=== PATIENT | male | born 1960 | race Caucasian/White ===

== ENCOUNTER 2018-10-14 13:11 | Emergency (ER) | payer OTHER ==
[2018-10-14] MEDS ORDERED: Sodium Chloride 0.9% 1000 ML 1,000 ML IV STA (13:54)
[2018-10-14] MEDS ORDERED: SODIUM CHLORIDE 0.9% IV ONE (13:56)
[2018-10-14] MEDS ORDERED: THORAZINE IV ONE (13:56)
[2018-10-14 14:10] LABS: BASOPHIL % 0.2 % (0.0-0.4); Basophil (Absolute #) 0.02 (0-0.4); Eosinophil % 0.9 % (0.00-5.0); Eosinophil (Absolute #) 0.11 (0-0.5); Granulocyte Absolute (ANC) 9.16 (1.4-6.9); Granulocytes % 73.7 % (36.0-66.0); Hematocrit 31.3 % (42-50); Hemoglobin 10.1 gm/dl (12.5-18.0); Lymphocyte (Absolute #) 1.84 (1.0-4.6); Lymphocytes % 14.8 % (24.0-44.0); Mean Cell Volume 86.2 fl (78-100); Mean Corpuscular Hemoglobin 27.8 pg (26-32); Mean Corpuscular Hgb Concent. 32.3 g/dl (32-36); Mean Platelet Volume 9.1 fl (6-9.5); Monocyte (Absolute #) 1.29 (0.0-1.3); Monocytes % 10.4 % (0.0-12.0); Platelet Count 500 K/mm3 (150-450); Red Blood Count 3.63 M/mm3 (4.1-5.6); Red Cell Distribution Width 14.4 % (11.5-14.0); White Blood Count 12.4 K/mm3 (4.0-10.5)
[2018-10-14] MEDS ORDERED: Sodium Chloride 0.9% 1000 ML 1,000 ML ONE (14:23)
[2018-10-14 14:26] LABS: ALBUMIN 3.4 g/dL (3.5-5.0); ANION GAP 12.2 MEQ/L (5-15); BILIRUBIN,TOTAL 0.4 mg/dL (0.2-1.3); Calcium 8.3 mg/dL (8.4-10.2); Creatinine 1 1.3 mg/dL (0.66-1.25); Potassium 3.3 mmol/L (3.5-5.1); Total Protein 6.2 g/dL (6.3-8.2)
[2018-10-14 14:44] LABS: Appearance CLOUDY (CLEAR); Bacteria FEW /HPF (NEGATIVE); Bilirubin NEGATIVE (NEGATIVE); Blood SMALL Ery/ul (0-5); Epithelial Cells RARE /HPF (FEW); Glucose 50 mg/dL (NEGATIVE); Ketones TRACE (NEGATIVE); Leukocyte Esterase MODERATE (NEGATIVE); Mucus SLIGHT /HPF (NEGATIVE); Nitrite POSITIVE (NEGATIVE); Non-Squamous Epithelial Cells RARE /HPF (FEW); Protein,Urine Dip 100 (Negative); Specific Gravity 1.013 (1.005-1.025); Urobilinogen NEGATIVE mg/dL (0-1); WBC 26-50 /HPF (0-5)
[2018-10-14 15:14] LABS: BAND 1 % (0.0-2.0); Lymphocytes 11 % (24-44); Monocyte 4 % (0.0-12.0); Neutrophils 84 % (36.-66.); Total Cells Counted 100
[2018-10-14 15:16] LABS: Platelet Estimate INCREASED (NORMAL)
--- NOTE | 2018-10-14 15:37 | ERPHSYRPT ---
- History of Present Illness Time Seen by Provider: 10/14/18 13:45 Source: patient, family Exam Limitations: no limitations Patient Subjective Stated Complaint: pt reports nausea and persistent hiccuping since a surgery 10/04/18. pt had reconstruction of left ureter and hernia repair at [facility]. pt has hx of bladder CA 9 years ago with gianni pouch. pt states he has not taken in any solid food for 10 days. reports vomiting that ceased 3 days ago. reports liquid stools but did have some form to it starting today. Triage Nursing Assessment: pt is aox3, pupils perrl, afebrile, resps easy and non labored, radial pulses strong and equal, abd appears distended, tenderness to the incisional area, bowel sounds present and hyperactive x 4, vertical incision noted to the abdomen with bashir present, no redness or drainage noted , skin is well approximated, barroso cath is place, clear yellow urine present in leg bag, surgical drain present to abdomen as well with a small amount of blood noted in the collection device, intermittent hiccuping noted upon exam, pt skin pale warm dry. cap refill < 3 seconds. Physician History: 58 y/o white male s/p total left ureterectomy with left ureter creation with bowel anastomosis and ventral hernia repair. was dx with bladder cancer several years ago. the left ureter was no longer functioning. [place]. pt states he has had intractable hiccups since surgery. not improving. pt is taking in liquids fine but unable to take in solids. pt with nausea but no vomiting. he does not have pain. he has had several bowel movements and most recent ones solid. his only new medication is keflex. pt has not been taking his oxycodone. his primary concern, and the one that brought him into ED, is the hiccups. Timing/Duration: day(s) (10 days) Severity: mild Associated Symptoms: nausea, other (hiccups), No vomiting Allergies/Adverse Reactions: No Known Drug Allergies Allergy (Verified 10/14/18 13:51) Home Medications: Acetaminophen 500 mg [Tylenol Extra Strength 500 mg] 1,000 mg PO Q6H 10/14 [History] Azelaic Acid [Finacea] 50 gm TP DAILY 10/14/18 [History] Cephalexin Mh 250 mg [Keflex 250 mg] 250 mg PO DAILY 10/14/18 [History] Docusate Sodium 100 mg [Colace 100 MG] 100 mg PO BID 10/14/18 [History] Enoxaparin Sodium 40 mg SQ DAILY 10/14/18 [History] Lansoprazole 15 mg PO DAILY 10/14/18 [History] Hx Tetanus, Diphtheria Vaccination/Date Given: Yes Hx Influenza Vaccination/Date Given: Yes Hx Pneumococcal Vaccination/Date Given: No Immunizations Up to Date: Yes - Review of Systems Constitutional: No Symptoms, No Fever Eyes: No Symptoms Ears, Nose, & Throat: No Symptoms Respiratory: Other (hiccups) Cardiac: No Symptoms Abdominal/Gastrointestinal: Nausea, No Abdominal Pain, No Vomiting Genitourinary Symptoms: No Symptoms Musculoskeletal: No Symptoms Skin: No Symptoms Neurological: No Symptoms Psychological: No Symptoms Endocrine: No Symptoms Hematologic/Lymphatic: No Symptoms Immunological/Allergic: No Symptoms All Other Systems: Reviewed and Negative - Past Medical History Pertinent Past Medical History: Yes Neurological History: No Pertinent History ENT History: No Pertinent History Cardiac History: No Pertinent History Respiratory History: No Pertinent History Endocrine Medical History: No Pertinent History Musculoskeletal History: No Pertinent History GI Medical History: GERD History: Bladder Cancer Psycho-Social History: No Pertinent History Male Reproductive Disorders: No Pertinent History Other Medical History: hx of bladder cancer has an [place] pouch, rosecia - Past Surgical History Past Surgical History: Yes Neuro Surgical History: No Pertinent History Cardiac: No Pertinent History Respiratory: No Pertinent History Gastrointestinal: No Pertinent History Genitourinary: Other Musculoskeletal: No Pertinent History Male Surgical History: Prostate Surgery Other Surgical History: bladder removed, prostated removed with lymph nodes,. stoma for caths. surgery to reconstruct ureter and hernia repair - Social History Smoking Status: Never smoker Exposure to second hand smoke: No Drug Use: none Patient Lives Alone: No - Nursing Vital Signs Nursing Vital Signs: Initial Vital Signs Temperature 97.8 F 10/14/18 13:27 Pulse Rate 89 10/14/18 13:27 Respiratory Rate 20 10/14/18 13:27 Blood Pressure 129/78 10/14/18 13:27 O2 Sat by Pulse Oximetry 98 10/14/18 13:27 Pain Scale Pain Intensity 2 - Physical Exam General Appearance: mild distress, alert, anxiety Eye Exam: PERRL/EOMI Ears, Nose, Throat Exam: normal ENT inspection, moist mucous membranes Neck Exam: normal inspection, non-tender, supple, full range of motion Respiratory Exam: normal breath sounds, lungs clear, No chest tenderness, No respiratory distress Cardiovascular Exam: regular rate/rhythm, normal heart sounds, normal peripheral pulses Gastrointestinal/Abdomen Exam: soft, normal bowel sounds, other (postop surgical sites without infection), No tenderness, No guarding, No rebound Rectal Exam: not done Back Exam: normal inspection, normal range of motion, No CVA tenderness, No vertebral tenderness Extremity Exam: normal inspection, normal range of motion, pelvis stable Neurologic Exam: alert, oriented x 3, cooperative, 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 as tested, normal mood/affect Skin Exam: normal color, warm, dry Lymphatic Exam: No adenopathy SpO2 Interpretation: normal SpO2: 99 O2 Delivery: Room Air - Course Nursing assessment & vital signs reviewed: Yes Ordered Tests: Active Orders 24 hr Category Date Time Status IV Insertion STAT Care 10/14/18 13:54 Active ABDOMEN AND PELVIS W/0 CONTRAS [CT] Stat Exams 10/14/18 16:07 Completed AMYLASE Stat Lab 10/14/18 14:00 Completed CBC W DIFF Stat Lab 10/14/18 14:00 Completed CMP Stat Lab 10/14/18 14:00 Completed CULTURE,URINE Stat Lab 10/14/18 14:29 Received LIPASE Stat Lab 10/14/18 14:00 Completed Lactic Acid Stat Lab 10/14/18 14:20 Completed Manual Differential NC Stat Lab 10/14/18 14:00 Completed UA W/RFX UR CULTURE Stat Lab 10/14/18 14:29 Completed Medication Summary Discontinued Medications Generic Name Dose Route Start Last Admin Trade Name Freq PRN Reason Stop Dose Admin Chlorpromazine HCl 25 mg/ 101 mls @ 200 mls/hr 10/14/18 13:56 10/14/18 14:46 Sodium Chloride IV 10/14/18 14:26 200 mls/hr STAT ONE Administration Sodium Chloride 1,000 mls @ 999 mls/hr 10/14/18 13:54 10/14/18 15:42 Sodium Chloride 0.9% 1000 Ml IV 10/14/18 14:54 Infused .Q1H1M STA Infusion Sodium Chloride Confirm 10/14/18 14:23 Sodium Chloride 0.9% 1000 Ml Administered 10/14/18 14:24 Dose 1,000 mls @ ud .ROUTE .STK-MED ONE Trimethoprim/Sulfamethoxazole 1 tab 10/14/18 15:43 10/14/18 15:48 Bactrim Ds Tablet PO 10/14/18 15:44 1 tab STAT STA Administration Trimethoprim/Sulfamethoxazole Confirm 10/14/18 15:46 Bactrim Ds Tablet Administered 10/14/18 15:47 Dose 1 tab PO .STK-MED ONE Lab/Rad Data: Laboratory Result Diagrams 10/14/18 14:00 10/14/18 14:00 Laboratory Results 10/14/18 10/14/18 10/14/18 Range/Units 14:29 14:20 14:00 WBC (4.0-10.5) K/mm3 RBC (4.1-5.6) M/mm3 Hgb (12.5-18.0) gm/dl Hct (42-50) % MCV (78-100) fl MCH (26-32) pg MCHC (32-36) g/dl RDW (11.5-14.0) % Plt Count (150-450) K/mm3 MPV (6-9.5) fl Gran % (36.0-66.0) % Eos # (Auto) (0-0.5) Absolute Lymphs (auto) (1.0-4.6) Absolute Monos (auto) (0.0-1.3) Lymphocytes % (24.0-44.0) % Monocytes % (0.0-12.0) % Eosinophils % (0.00-5.0) % Basophils % (0.0-0.4) % Absolute Granulocytes (1.4-6.9) Segmented Neutrophils (36.-66.) % Band Neutrophils (0.0-2.0) % Lymphocytes (Manual) (24-44) % Monocytes (Manual) (0.0-12.0) % Basophils # (0-0.4) Platelet Estimate (NORMAL) RBC Morphology Sodium 133 L (137-145) mmol/L Potassium 3.3 L (3.5-5.1) mmol/L Chloride 99 (98-107) mmol/L Carbon Dioxide 24 (22-30) mmol/L Anion Gap 12.2 (5-15) MEQ/L BUN 29 H (9-20) mg/dL Creatinine 1.30 H (0.66-1.25) mg/dL Estimated GFR 59.8 ML/MIN Glucose 144 H (74-106) mg/dL Lactic Acid 1.4 (0.4-2.0) Calcium 8.3 L (8.4-10.2) mg/dL Total Bilirubin 0.40 (0.2-1.3) mg/dL AST 17 (17-59) U/L ALT 33 (0-50) U/L Alkaline Phosphatase 71 (38-126) U/L Serum Total Protein 6.2 L (6.3-8.2) g/dL Albumin 3.4 L (3.5-5.0) g/dL Amylase 129 H (30-110) U/L Lipase 546 H (23-300) U/L Urine Color YELLOW (YELLOW) Urine Appearance CLOUDY (CLEAR) Urine pH 6.0 (5-6) Ur Specific [place] 1.013 (1.005-1.025) Urine Protein 100 (Negative) Urine Ketones TRACE (NEGATIVE) Urine Blood SMALL (0-5) Merlin/ul Urine Nitrite POSITIVE (NEGATIVE) Urine Bilirubin NEGATIVE (NEGATIVE) Urine Urobilinogen NEGATIVE (0-1) mg/dL Ur Leukocyte Esterase MODERATE (NEGATIVE) Urine WBC (Auto) 26-50 (0-5) /HPF Urine RBC (Auto) 3-5 (0-2) /HPF U Epithel Cells (Auto) RARE (FEW) /HPF Urine Bacteria (Auto) FEW (NEGATIVE) /HPF U Non-Squamous Epi Cells RARE (FEW) /HPF Urine Mucus (Auto) SLIGHT (NEGATIVE) /HPF Urine Culture Reflexed YES (NO) Urine Glucose 50 (NEGATIVE) mg/dL 10/14/18 Range/Units 14:00 WBC 12.4 H (4.0-10.5) K/mm3 RBC 3.63 L (4.1-5.6) M/mm3 Hgb 10.1 L (12.5-18.0) gm/dl Hct 31.3 L (42-50) % MCV 86.2 (78-100) fl MCH 27.8 (26-32) pg MCHC 32.3 (32-36) g/dl RDW 14.4 H (11.5-14.0) % Plt Count 500 H (150-450) K/mm3 MPV 9.1 (6-9.5) fl Gran % 73.7 H (36.0-66.0) % Eos # (Auto) 0.11 (0-0.5) Absolute Lymphs (auto) 1.84 (1.0-4.6) Absolute Monos (auto) 1.29 (0.0-1.3) Lymphocytes % 14.8 L (24.0-44.0) % Monocytes % 10.4 (0.0-12.0) % Eosinophils % 0.9 (0.00-5.0) % Basophils % 0.2 (0.0-0.4) % Absolute Granulocytes 9.16 H (1.4-6.9) Segmented Neutrophils 84 H (36.-66.) % Band Neutrophils 1 (0.0-2.0) % Lymphocytes (Manual) 11 L (24-44) % Monocytes (Manual) 4 (0.0-12.0) % Basophils # 0.02 (0-0.4) Platelet Estimate INCREASED (NORMAL) RBC Morphology NORMAL Sodium (137-145) mmol/L Potassium (3.5-5.1) mmol/L Chloride (98-107) mmol/L Carbon Dioxide (22-30) mmol/L Anion Gap (5-15) MEQ/L BUN (9-20) mg/dL Creatinine (0.66-1.25) mg/dL Estimated GFR ML/MIN Glucose (74-106) mg/dL Lactic Acid (0.4-2.0) Calcium (8.4-10.2) mg/dL Total Bilirubin (0.2-1.3) mg/dL AST (17-59) U/L ALT (0-50) U/L Alkaline Phosphatase (38-126) U/L Serum Total Protein (6.3-8.2) g/dL Albumin (3.5-5.0) g/dL Amylase (30-110) U/L Lipase (23-300) U/L Urine Color (YELLOW) Urine Appearance (CLEAR) Urine pH (5-6) Ur Specific [place] (1.005-1.025) Urine Protein (Negative) Urine Ketones (NEGATIVE) Urine Blood (0-5) Merlin/ul Urine Nitrite (NEGATIVE) Urine Bilirubin (NEGATIVE) Urine Urobilinogen (0-1) mg/dL Ur Leukocyte Esterase (NEGATIVE) Urine WBC (Auto) (0-5) /HPF Urine RBC (Auto) (0-2) /HPF U Epithel Cells (Auto) (FEW) /HPF Urine Bacteria (Auto) (NEGATIVE) /HPF U Non-Squamous Epi Cells (FEW) /HPF Urine Mucus (Auto) (NEGATIVE) /HPF Urine Culture Reflexed (NO) Urine Glucose (NEGATIVE) mg/dL - Progress Progress: improved, re-examined Progress Note: 10/14/18 17:03 pt was asleep and had no hiccups. when i woke him up he began having a few hiccups but not as frequent. ct scan abd/pelvis-no acute post op process. expected postsurgical picture and anatomical changes. Counseled pt/family regarding: lab results, diagnosis, need for follow-up, rad results - Departure Time of Disposition: 17:05 Departure Disposition: Home Clinical Impression: Intractable hiccups Condition: Stable Critical Care Time: No Referrals: MARIA ELENA ORTEGA [Primary Care Provider] - Additional Instructions: take in clear liquids as tolerated. advance your diet per your postoperative instructions. stop your keflex. take bactrim ds as prescribed. follow up with your primary doctor or urologist for further management of your hiccups. Prescriptions: Chlorpromazine HCl 25 mg [Thorazine 25 mg] 25 mg PO QID PRN #12 tablet PRN Reason: Nausea Smz/Tmp Ds Tablet [Bactrim Ds Tablet] 1 udtab PO BID #14 tablet
[2018-10-14] MEDS ORDERED: BACTRIM DS TABLET PO STA (15:43)
[2018-10-14] MEDS ORDERED: BACTRIM DS TABLET PO ONE (15:46)
[2018-10-14 15:53] VITALS: PULSE 97
--- NOTE | 2018-10-14 16:47 | XRAY ---
Indication: Hiccups. Vomiting left-sided pain. Difficulty eating. Multiple contiguous axial images obtained through the abdomen and pelvis without contrast as ordered. Comparison: September 27, 2018. Lung bases now demonstrates mild bibasilar dependent atelectasis and inferior lingula fibrosis/scarring. Heart is not enlarged. Stable small hiatal hernia. Again total cystectomy with bilateral diverting urostomy/[place] pouch. New left ureteral stent catheter in good position with resolving hydronephrosis and hydroureter. Previous right lower quadrant stoma now demonstrates a Lozano catheter with the balloon tip in the [place] pouch. New midline abdominal wall incision with percutaneous drainage catheter in situ. No large incisional fluid collection. Stomach and bowel loops are now fluid distended with synchronous fluid leveling favoring postoperative ileus. Small bowel loops at the level of the pelvic inlet demonstrates new suture material. No free fluid/air. Previous colonic fecal debris has cleared. Stable calcified splenic granulomas. Remaining liver, gallbladder, pancreas, spleen, adrenal glands, right kidney, and right ureter appear unremarkable for noncontrast exam. Stable mild aortic calcifications without AAA. Impression: 1. Interval laparotomy as evidenced by new abdominal wall incision, new incisional percutaneous drainage catheter in situ, and small bowel suture material. No obvious incisional fluid collection. 2. New postoperative ileus. 3. New left-sided ureteral stent catheter with resolving hydronephrosis/hydroureter. 4. Again total cystectomy with bilateral diverting urostomy/Fiona pouch. New Lozano balloon tip catheter in urostomy pouch. 5. Stable small hiatal hernia. CT DI 21.03
[2018-10-14 17:10] VITALS: O2SAT 99
[2018-10-14 17:11] VITALS: BP 120/65
== END 2018-10-14 18:01 | disposition home or self-care (01) ==
LOC: ED 13:11
DX: Z85.51 Personal history of malignant neoplasm of bladder (principal); Z79.899 Other long term (current) drug therapy; K21.9 Gastro-esophageal reflux disease without esophagitis
CPT/HCPCS: 36000; 36415; 74176; 80053; 81001; 82150; 83605; 83690; 85025; 87077; 87086; 87186; 96365; 99284; J3230; A9270-GY

== ENCOUNTER 2021-04-19 05:45 | Day surgery (SDC) | payer OTHER ==
[2021-04-19] MEDS ORDERED: Lactated Ringers 1,000 ML IV SCH (06:30)
[2021-04-19] MEDS ORDERED: DIPRIVAN 200 MG/20 ML IV ONE (07:32)
[2021-04-19 09:21] VITALS: BP 126/77; PULSE 57; O2SAT 92
--- NOTE | 2021-04-19 12:58 | OP ---
SURGERY DATE/TIME: 04/19/2021 0735 PREOPERATIVE DIAGNOSIS: History of colon polyps eight years ago and rectal bleeding two weeks ago. POSTOPERATIVE DIAGNOSIS: Normal colon. PROCEDURE: Colonoscopy. SURGEON: Dr. Bonilla. ANESTHESIA: MAC. Medications given by anesthesia department. HISTORY: The patient is a 60 year-old white male patient who presented to the office with complaints of two times of having rectal bleeding approximately two weeks prior to procedure. The patient also reported previous history of colon polyps approximately eight years ago. The patient was felt the need to have endoscopic evaluation. He was appraised of the risks of the procedure including the risk of perforation, phlebitis, untoward reaction to medication, bleeding and missed lesions. The patient verbalized his understanding and desired to have the procedure performed. DESCRIPTION OF PROCEDURE: The patient was given the medications by the anesthesia department. He had continuous pulse oximetry, ECG monitoring, intermittent blood pressure monitoring and tidal CO2 monitoring during the examination. He was placed in the left lateral decubitus position. A digital rectal examination was performed and revealed normal anal sphincter tone, no masses and a surgically absent prostate. The flexible Olympus pediatric colonoscope was used to intubate the rectum. A view of the colon was developed sequentially to the cecum. Upon insertion and withdrawal, including a retroflex view in the rectum, no mucosal lesions were encountered. The scope was removed from the patient who tolerated the procedure well and was sent back to OP recovery in good condition. The prep was noted to be good.
== END 2021-04-19 08:52 | disposition home or self-care (01) ==
LOC: SDC 05:45
PROVIDERS: ATTEND Family Medicine
DX: K62.5 Hemorrhage of anus and rectum (principal); Z86.010 Personal history of colon polyps; E11.9 Type 2 diabetes mellitus without complications; Z79.899 Other long term (current) drug therapy
CPT/HCPCS: J2704